=== PATIENT | female | born 1970 ===

== ENCOUNTER 2023-08-09 06:00 | Outpatient (RCR) | payer MEDICARE, SELFPAY | END 2023-08-29 23:59 | disposition home or self-care (01) | LOC: TPT 06:00 | PROVIDERS: Visit Provider Orthopaedic Surgery | DX: T84.022D Instability of internal right knee prosthesis, subsequent encounter (principal); Y83.8 Other surgical procedures as the cause of abnormal reaction of the patient, or of later complication, without mention of misadventure at the time of the procedure | CPT/HCPCS: 97110; 97162 ==

== ENCOUNTER 2023-08-30 06:00 | Outpatient (RCR) | payer MEDICARE, SELFPAY | END 2023-09-27 23:59 | disposition home or self-care (01) | LOC: TPT 06:00 | PROVIDERS: Visit Provider Orthopaedic Surgery | DX: T84.022D Instability of internal right knee prosthesis, subsequent encounter (principal); X58.XXXD Exposure to other specified factors, subsequent encounter | CPT/HCPCS: 97110 ==